=== PATIENT | female | born 1995 | race Caucasian/White ===

== ENCOUNTER 2018-01-18 19:40 | Emergency (ER) | payer OTHER, MEDICAID ==
--- NOTE | 2018-01-18 19:54 | EDPHY ---
H & P Source: Patient, Police Exam Limitations: No limitations - Medical/Surgical History Hx Asthma: No Hx Chronic Respiratory Disease: No Hx Diabetes: No Hx Cardiac Disease: No Hx Renal Disease: No Hx Cirrhosis: No Hx Alcoholism: No Hx HIV/AIDS: No Hx Splenectomy or Spleen Trauma: No Other PMH: heroin drug use, endocarditis, mitral valve replacement, pacemaker, ascites - Family History Significant Family History: No pertinent family hx - Social History Smoking Status: Current every day smoker Alcohol Use: Sober Drug Use: None Time Seen by Provider: 01/18/18 19:43 HPI/ROS: CHIEF COMPLAINT: Abdominal distention HISTORY OF PRESENT ILLNESS: The patient is a 22-year-old female with a history of ascites who comes from the retirement requesting that paracentesis. She has a history of endocarditis and heroin abuse and had a mitral valve replacement porcine in October of this year at [facility]. She also has a pacemaker and is on Xarelto. She also has a history of cirrhosis and ascites. She states that she has had her ascites drained 3 times in the last 2 months. She denies chest pain or fevers. She denies shortness of breath. She denies other new symptoms. Severity: Moderate Modifying factors: None REVIEW OF SYSTEMS: Constitutional: denies: chills, fever, recent illness, recent injury EENTM: denies: blurred vision, double vision, nose congestion Respiratory: denies: cough, shortness of breath Cardiac: denies: chest pain, irregular heart rate, lightheadedness, palpitations Gastrointestinal/Abdominal: See HPI Genitourinary: denies: dysuria, frequency, hematuria, pain Musculoskeletal: denies: joint pain, muscle pain Skin: denies: lesions, rash, jaundice, bruising Neurological: denies: headache, numbness, paresthesia, tingling, dizziness, weakness Hematologic/Lymphatic: denies: blood clots, easy bleeding, easy bruising Immunologic/allergic: denies: HIV/AIDS, transplant 10 systems reviewed and negative except as noted EXAM: GENERAL: Slightly pale, no acute distress HEAD: Atraumatic, normocephalic. EYES: Pupils equal round and reactive to light, extraocular movements intact, sclera anicteric, conjunctiva are normal. ENT: TMs normal, nares patent, oropharynx clear without exudates. Moist mucous membranes. NECK: Normal range of motion, supple without lymphadenopathy or JVD. LUNGS: Breath sounds clear to auscultation bilaterally and equal. No wheezes rales or rhonchi. HEART: Regular rate and rhythm without murmurs, rubs or gallops. ABDOMEN: A distension, fluid shift, nontender BACK: No CVA tenderness, no spinal tenderness, step-offs or deformities EXTREMITIES: Lower extremity edema at baseline NEUROLOGICAL: Cranial nerves II through XII grossly intact. Normal speech, normal gait. 5/5 strength, normal movement in all extremities, normal sensation , normal reflexes PSYCH: Normal mood, normal affect. SKIN: Warm, dry, normal turgor, no visible rashes or lesions. (Patric Mcclain) Constitutional: Initial Vital Signs Temperature (C) 36.8 C 01/18/18 19:50 Heart Rate 102 H 01/18/18 19:50 Respiratory Rate 20 01/18/18 19:50 Blood Pressure 110/79 01/18/18 19:50 O2 Sat (%) 93 01/18/18 19:50 O2 Delivery Mode Room Air O2 (L/minute) 2 Allergies/Adverse Reactions: No Known Allergies Allergy (Unverified 09/18/17 03:21) Home Medications: Medication Instructions Recorded Aldactone 01/18/18 Aspirin 01/18/18 Atarax 01/18/18 Clonidine 01/18/18 Gabapentin 01/18/18 IMODIUM A-D 01/18/18 Ibuprofen 01/18/18 Lasix 01/18/18 Magnesium Oxide 01/18/18 Medical Decision Making Procedures: Paracentesis: With ultrasound guidance I 1st anesthetized the patient's left mid abdomen with 10 cc 1% lidocaine. I then placed a paracentesis needle and catheter through the abdominal wall until clear ascitic fluid was obtained. I then advanced the catheter but not the needle. It is draining clearly. Patient tolerated the procedure well. No sign of hemorrhage. (Patric Mcclain) ED Course/Re-evaluation: The patient states that she is primarily here to have her ascites drained. She states that it is uncomfortable. She was just arrested yesterday in retirement and did not receive her Xarelto today. I discussed this with Dr. Somers from [facility]. She feels that it would be safe to perform paracentesis and is requesting an ultrasound 1st. Patient is slightly tachycardic which is likely due to her pain. I feel that her vital signs will improve after paracentesis. We will observe. We discussed options with the patient and we decided to have me perform the procedure at the bedside. I did this with ultrasound guidance and she tolerated the procedure well. 8:45 p.m. the patient has about 800 cc out and is continuing to flow. Nonbloody. Clear yellowish fluid. The she is feeling more comfortable. Her heart rate is improving. The retirement has released her from their care and they have left. She is calling her friends to try and arrange a ride home. 9:00 p.m. care transferred to Dr. Carl Trujillo. The patient's vital signs continued to improve as the fluid drains from her abdomen. She is breathing comfortably and her heart rate is normalized. Her blood pressure is also 106/ 76. We were not able to obtain lab work other than a chemistry due to multiple IV attempts. At this point the patient does not wish to stay in the hospital. If her symptoms continue to improve I agree that this is reasonable. She is calling her friends right now to try and arrange a ride home. If her vital signs worsen or if she develops more pain, fever etc then we will plan to admit. (Patric Mcclain) Differential Diagnosis: Partial list of the Differential diagnosis considered include but were not limited to; ascites, CHF, chronic edema and although unlikely based on the history and physical exam, I also considered sepsis, infection, DVT. I discussed these differential diagnoses and the plan with the patient as well as the usual and expected course. The patient understands that the diagnosis is provisional and that in medicine we are not always correct and that further workup is often warranted. Usual and customary warnings were given. All of the patient's questions were answered. The patient was instructed to return to the emergency department should the symptoms at all worsen or return, otherwise to followup with the physician as we discussed. (Patric Mcclain) Other Provider: Patient was signed out to me at [address] Mcclain pending re-evaluation after therapeutic paracentesis complete, with plan for likely discharge home if patient stable. On re-evaluation at 2230, patient comfortable, straw-colored fluid only present in paracentesis bag. I discussed ED course with patient and offered her admission to the hospital for further treatment and observation. She declines this and would like to go home. She is ambulatory without difficulty. She is aware that we have not been able to obtain a full lab panel secondary to lack of IV access. (Carl Trujillo) - Data Points Laboratory Results: Laboratory Results 01/18/18 19:56 Departure - Departure Disposition: Home, Routine, Self-Care Clinical Impression: Ascites Qualifiers: Ascites type: other type Qualified Code(s): R18.8 - Other ascites Condition: Good Instructions: Ascites (ED), Paracentesis (DC) Referrals: NONE *PRIMARY CARE P,. [Primary Care Provider] - 1-2 days without fail
[2018-01-18 22:51] VITALS: BP 94/62
== END 2018-01-18 23:16 | disposition home or self-care (01) ==
LOC: EEVIPCON 19:40
PROC: 0W9G3ZZ Drainage of Peritoneal Cavity, Percutaneous Approach (ICD-10-PCS; principal; 2018-01-18)
DX: R18.8 Other ascites (principal); Z95.2 Presence of prosthetic heart valve; Z95.0 Presence of cardiac pacemaker; Z86.79 Personal history of other diseases of the circulatory system; Z79.01 Long term (current) use of anticoagulants